=== PATIENT | female | born 1990 | race Caucasian/White ===

== ENCOUNTER 2017-01-08 11:14 | Emergency (ER) | payer BC ==
[2017-01-08 11:31] VITALS: BP 129/83; PULSE 60; RESP 16; TEMP 97.5; O2SAT 97
--- NOTE | 2017-01-08 12:45 | EDPHY ---
H & P Stated Complaint: head inj roller roselyn 3 weeks ago/friend impacted head to her jaw yesterday Time Seen by Provider: 01/08/17 12:22 HPI/ROS: 1240pm-I went to evaluate the patient and patient had left before being seen by provider. - Personal History LMP (Females 10-55): 22-28 Days Ago Current Tetanus/Diphtheria Vaccine: Yes - Medical/Surgical History Hx Asthma: No Hx Chronic Respiratory Disease: No Hx Diabetes: No Hx Cardiac Disease: No Hx Renal Disease: No Hx Cirrhosis: No Hx Alcoholism: No Hx HIV/AIDS: No Hx Splenectomy or Spleen Trauma: No Other PMH: BIPOLAR, OCD, ADHD, PANIC ATTACKS, eating disorder, possible hx. of concussion - Social History Smoking Status: Never smoked Constitutional: Initial Vital Signs Temperature (C) 36.4 C 01/08/17 11:27 Heart Rate 60 01/08/17 11:27 Respiratory Rate 16 01/08/17 11:27 Blood Pressure 129/83 H 01/08/17 11:27 O2 Sat (%) 97 01/08/17 11:27 O2 Delivery Mode Room Air Allergies/Adverse Reactions: gluten Allergy (Verified 01/08/17 11:27) Home Medications: Medication Instructions Recorded carBAMazepine ER [Tegretol Xr] 100 mg PO BID@ #60 tab 09/14/16 Adderall 10 MG (*) 01/08/17 Departure - Departure Disposition: Left Without Being Seen Referrals: Rosey Goodwin MD [Primary Care Provider] - As per Instructions
== END 2017-01-08 12:30 | disposition left against medical advice (07) ==
LOC: EEVIPCON 11:14
DX: Z53.21 Procedure and treatment not carried out due to patient leaving prior to being seen by health care provider (principal)

== ENCOUNTER → 2017-02-16 | Outpatient (CLI) | payer BC ==
[~2017-02-16] MED LIST: IOPAMIDOL (ISOVUE 370) 100 ML BTL IV ONE
== END ==
LOC: FIMAGING 15:17
PROVIDERS: ATTEND Psychiatry & Neurology Neurology
DX: Z03.89 Encounter for observation for other suspected diseases and conditions ruled out (principal); R51 Headache
CPT/HCPCS: Q9967

== ENCOUNTER 2017-02-20 15:29 | Emergency (ER) | payer BC ==
[2017-02-20 15:45] VITALS: BP 118/77; PULSE 66; RESP 18; TEMP 97.5; O2SAT 100
--- NOTE | 2017-02-20 17:33 | EDPHY ---
H & P Time Seen by Provider: 02/20/17 16:23 HPI/ROS: CHIEF COMPLAINT: Head injury HISTORY OF PRESENT ILLNESS: Patient is a 26-year-old female who presents to the emergency department with headache. Patient states that she has had numerous concussions. She has been followed by a neurologist, Dr. Ortiz. She has had numerous imaging studies including a recent noncontrast head CT, CT angio of the head, CT angio of the neck. She had sudden onset of dizzy in blurred vision. She then stated she had fuzziness behind her eyes "like when you get a concussion." She was concerned that she was having micro concussions. She denies any nausea vomiting. No focal neurologic deficit. No headache or symptoms at this time. REVIEW OF SYSTEMS: My complete review of systems is negative except as mentioned in the HPI. Past Medical/Surgical History: Numerous concussions, bipolar Smoking Status: Never smoked Physical Exam: Vitals noted GENERAL: Well-appearing, in no acute distress, alert. HEENT: Eyes normal to inspection, normal pharynx, no signs of dehydration. NECK: No thyromegaly, no lymphadenopathy, supple. RESPIRATORY: Clear to auscultation bilaterally, no rales, rhonchi or wheezing. CVS: Regular rate and rhythm, no rubs, murmurs, or gallops. ABDOMEN: Soft, nontender, nondistended, no organomegaly. BACK: Normal to inspection, no CVA tenderness. SKIN: Normal color, no rash, warm, dry. No pallor. EXTREMITIES: No pedal edema, no calf tenderness, no Homans sign or cords, no joint swelling. NEURO/PSYCH: Higher functions: Alert and Oriented x3. Normal speech and cognition. Normal mood and affect. Cranial nerves: Normal as tested. Cerebellar: Normal as tested. Good finger to nose, good [id number], normal gait. Peripheral exam: Normal motor exam. Normal sensation. Normal reflexes. Constitutional: Initial Vital Signs Temperature (C) 36.4 C 02/20/17 15:43 Heart Rate 66 02/20/17 15:43 Respiratory Rate 18 02/20/17 15:43 Blood Pressure 118/77 02/20/17 15:43 O2 Sat (%) 100 02/20/17 15:43 O2 Delivery Mode Room Air Allergies/Adverse Reactions: gluten Allergy (Verified 01/08/17 11:27) Home Medications: Medication Instructions Recorded carBAMazepine ER [Tegretol Xr] 100 mg PO BID@ #60 tab 09/14/16 Adderall 10 MG (*) 01/08/17 Medical Decision Making ED Course/Re-evaluation: I discussed the case with the patient's neurologist Dr. Ortiz. I reviewed the patient's imaging studies. They were negative. I discussed the findings with the patient. At this time I I do not feel she has a neuro surgical emergency. I do not feel she needs MRI imaging in the emergency department. I explained to the patient. I answered all her questions. She is given warnings prior to leaving. She will return with worsening symptoms. Differential Diagnosis: My differential includes but is not limited to concussion, post concussive syndrome, dissection, aneurysm, mass, malignancy, dissection subarachnoid hemorrhage, subdural hematoma, epidural hematoma, CVA Departure - Departure Disposition: Home, Routine, Self-Care Clinical Impression: Head injury Qualifiers: Encounter type: initial encounter Qualified Code(s): S09.90XA - Unspecified injury of head, initial encounter Condition: Good Instructions: Concussion (ED) Referrals: Rosey Goodwin MD [Primary Care Provider] - As per Instructions Amarilys Ortiz DO [Non Staff and Non MD] - As per Instructions
== END 2017-02-20 17:30 | disposition home or self-care (01) ==
DX: S09.90XA Unspecified injury of head, initial encounter (principal); X58.XXXA Exposure to other specified factors, initial encounter

== ENCOUNTER → 2017-03-02 | Outpatient (CLI) | payer BC | LOC: FIMAGING 19:12 | PROVIDERS: ATTEND Psychiatry & Neurology Neurology | DX: M50.322 Other cervical disc degeneration at C5-C6 level (principal); M50.323 Other cervical disc degeneration at C6-C7 level; R51 Headache ==

== ENCOUNTER → 2017-04-05 | Outpatient (CLI) | payer BC | LOC: FIMAGING 14:29 | PROVIDERS: ATTEND Psychiatry & Neurology Neurology | DX: M53.82 Other specified dorsopathies, cervical region (principal) ==

== ENCOUNTER 2017-09-16 20:42 | Emergency (ER) | payer BC ==
[2017-09-16] MEDS ORDERED: LORazepam 1 MG TAB PO ONE (20:56)
--- NOTE | 2017-09-16 20:59 | EDPHY ---
H & P Time Seen by Provider: 09/16/17 20:50 HPI/ROS: CHIEF COMPLAINT: Acute anxiety HISTORY OF PRESENT ILLNESS: 26-year-old female took a Lyft to the ER. Mental health history significant for possible bipolar disorder possible borderline personality disorder, states that her psychiatrist increased her Lamictal 2 days ago and she has been experiencing increasing anxiety ever sex. Combined with being by herself today, drinking large amounts of caffeine, she is complaining high levels of anxiety. No suicidal or homicidal ideation. No hallucination. PRIMARY CARE PROVIDER: REVIEW OF SYSTEMS: A ten point review of systems was performed and is negative with the exception of the items mentioned in the HPI PAST MEDICAL & SURGICAL HISTORY: Possible bipolar disorder, possible borderline personality disorder SOCIAL HISTORY: student nonsmoker PHYSICAL EXAM (Prior to examination, patient consented to physical exam, hands were washed and my usual and customary physical exam procedures followed) 1) GENERAL: Well-developed, well-nourished, alert and oriented. Tearful, hyperventilating, appears anxious 2) HEAD: Normocephalic, atraumatic 3) HEENT: Pupils equal, round, reactive to light bilaterally. Sclera anicteric. 4) NECK: Full range of motion, no meningeal signs. 5) LUNGS: Clear auscultation bilaterally, no wheezes, no rhonchi, no retractions. 6) HEART: Regular rate and rhythm, no murmur, no heave, no gallop. 7) ABDOMEN: No guarding, no rebound, no focal tenderness,, 8) MUSCULOSKELETAL: No peripheral edema or discoloration. 9) BACK: no visual or palpable abnormality. 10) SKIN: No rash, no petechiae. 11) Psychiatric: Patient is oriented X 3, there is no agitation. DIFFERENTIAL DIAGNOSIS: in no particular order including but limited to suicidal ideation, depression, acute anxiety Smoking Status: Never smoked Constitutional: Initial Vital Signs Temperature (C) 36.7 C 09/16/17 20:45 Heart Rate 71 09/16/17 20:45 Respiratory Rate 22 H 09/16/17 20:45 Blood Pressure 119/78 09/16/17 20:45 O2 Sat (%) 98 09/16/17 20:45 O2 Delivery Mode Room Air Allergies/Adverse Reactions: No Known Allergies Allergy (Unverified 09/16/17 20:45) Home Medications: Medication Instructions Recorded Lamictal 09/16/17 MDM/Departure - MDM Medications Given: Discontinued Medications Lorazepam (Ativan) 1 mg PO EDNOW ONE Stop: 09/16/17 20:57 Last Admin: 09/16/17 21:02 Dose: 1 mg ED Course/Re-evaluation: 9:41 p.m.: Re-evaluation, sleeping 10:02 p.m.: Patient re-evaluated, sleeping easily woken. Denies suicidal or homicidal ideation. Recommend cessation of stimulant use. Follow up with her psychiatrist on Monday (today is Monday) - Depart Disposition: Home, Routine, Self-Care Clinical Impression: Anxiety Condition: Good Instructions: Anxiety (ED), Lorazepam (By mouth) Additional Instructions: Decrease your stimulant use. Return to the ER if you develop thoughts of hurting herself or others or any other symptoms that concern you. Referrals: See, your psychiatrist on Monday [Other] - As per Instructions
[2017-09-16] MEDS ORDERED: LORAZEPAM 1 MG PREPACK#4 BTL TAKEHOME ONE (22:07)
[2017-09-16 22:34] VITALS: BP 108/72; PULSE 75; RESP 16; TEMP 97.9; O2SAT 93
== END 2017-09-16 22:33 | disposition home or self-care (01) ==
LOC: EEVIPCON 20:42
DX: F41.9 Anxiety disorder, unspecified (principal)

== ENCOUNTER 2018-01-22 00:12 | Emergency (ER) | payer BC ==
[2018-01-22] MEDS ORDERED: NS 1,000 ML IV ONE (00:19)
[2018-01-22] MEDS ORDERED: LORazepam 2 MG/ML INJ IVP ONE (00:20)
--- NOTE | 2018-01-22 00:23 | EDPHY ---
H & P Time Seen by Provider: 01/22/18 00:20 HPI/ROS: HPI CHIEF COMPLAINT: Anxiety/panic attack HISTORY OF PRESENT ILLNESS: Patient is a 27-year-old female, she has a history of anxiety and panic attacks as well as agoraphobia, she presents emergency room by EMS after she states she is having anxiety/panic attack. She reports numbness tingling on her face and bilateral hands. Increase breathing rate. She states she did take 1 mg p. O. Ativan prior to arrival but it did not help. Decided come the emergency room as she has a history of severe anxiety/panic attacks. Upon arrival she complains of numbness and tingling all over her body. She states she feels very anxious. Past Medical History: Anxiety, panic attacks, agoraphobia, bipolar disorder, personality disorder Past Surgical History: Denies recent surgery Social History: Denies daily use of drugs alcohol tobacco. Family History: Noncontributory ROS REVIEW OF SYSTEMS: A comprehensive 10 point review of systems is otherwise negative aside from elements mentioned in the history of present illness. Exam Constitutional appears well nontoxic no acute distress, anxious, triage nursing summary reviewed, vital signs reviewed, awake/alert. Eyes normal conjunctivae and sclera, EOMI, PERRLA. HENT normal inspection, atraumatic, moist mucus membranes, no epistaxis, neck supple/ no meningismus, no raccoon eyes. Respiratory clear to auscultation bilaterally, normal breath sounds, no respiratory distress, no wheezing. Cardiovascular rate normal, regular rhythm, no murmur, no edema, distal pulses normal. Gastrointestinal soft, non-tender, no rebound, no guarding, normal bowel sounds, no distension, no pulsatile mass. Genitourinary no CVA tenderness. Musculoskeletal no midline vertebral tenderness, full range of motion, no calf swelling, no tenderness of extremities, no meningismus, good pulses, neurovascularly intact. Skin pink, warm, & dry, no rash, skin atraumatic. Neurologic awake, alert and oriented x 3, AAOx3, moves all 4 extremities equally, motor intact, sensory intact, CN II-XII intact, normal cerebellar, normal vision, normal speech. Psychiatric anxious Heme/Lymph/Immune no lymphadenopathy. Differential Diagnosis: Includes but is not limited to in a particular order acute anxiety, panic attack electrolyte disturbance, thyroid dysfunction, Medical Decision Making: Plan for this patient IV establishment IV Ativan 1 mg , gentle IV fluids, check basic electrolytes, and re-evaluate. Re-evaluation: 0200: Re-examination at this time this patient is resting comfortably infection he is sleeping. She states she feels much better. She denies feeling anxious anymore. She would like to go home and she is requesting discharge. Vital signs are stable and she has no complaints. She states she feels better after IV Ativan 1 mg. Return precautions discussed. She understands return emergency room if develops worsening symptoms includes shortness of breath, chest pain, further anxiety. Source: Patient, EMS - Medical/Surgical History Hx Asthma: No Hx Chronic Respiratory Disease: No Hx Diabetes: No Hx Cardiac Disease: No Hx Renal Disease: No Hx Cirrhosis: No Hx Alcoholism: No Hx HIV/AIDS: No Hx Splenectomy or Spleen Trauma: No Other PMH: ADHD, PANIC ATTACKS, hx eating disorder, possible hx. of concussion - Social History Smoking Status: Never smoked Constitutional: Initial Vital Signs Temperature (C) 36.7 C 01/22/18 00:15 Heart Rate 61 01/22/18 00:15 Respiratory Rate 18 01/22/18 00:15 Blood Pressure 117/78 01/22/18 00:15 O2 Sat (%) 98 01/22/18 00:15 O2 Delivery Mode Room Air Allergies/Adverse Reactions: No Known Allergies Allergy (Unverified 01/22/18 00:25) Home Medications: Medication Instructions Recorded 5-Hydroxytryptophan (5-Htp) [5-Htp] 50 mg PO 01/22/18 L Theonine 01/22/18 [place]-3/Dha/Epa/Fish Oil [Fish Oil 1 each PO 01/22/18 1,000 mg Softgel] Medical Decision Making - Data Points Laboratory Results: Laboratory Results 01/22/18 00:38 01/22/18 00:38 01/22/18 01/22/18 01/22/18 00:38 00:38 00:38 WBC 6.88 10^3/uL 10^3/uL (3.80-9.50) RBC 4.39 10^6/uL 10^6/uL (4.18-5.33) Hgb 13.1 g/dL g/dL (12.6-16.3) Hct 37.7 % L % (38.0-47.0) MCV 85.9 fL fL (81.5-99.8) MCH 29.8 pg pg (27.9-34.1) MCHC 34.7 g/dL g/dL (32.4-36.7) RDW 12.6 % % (11.5-15.2) Plt Count 199 10^3/uL 10^3/uL (150-400) MPV 9.7 fL fL (8.7-11.7) Neut % (Auto) 54.2 % % (39.3-74.2) Lymph % (Auto) 35.6 % % (15.0-45.0) [place] % (Auto) 7.7 % % (4.5-13.0) Eos % (Auto) 1.5 % % (0.6-7.6) Baso % (Auto) 0.7 % % (0.3-1.7) Nucleat RBC Rel Count 0.0 % % (0.0-0.2) Absolute Neuts (auto) 3.73 10^3/uL 10^3/uL (1.70-6.50) Absolute Lymphs (auto) 2.45 10^3/uL 10^3/uL (1.00-3.00) Absolute Monos (auto) 0.53 10^3/uL 10^3/uL (0.30-0.80) Absolute Eos (auto) 0.10 10^3/uL 10^3/uL (0.03-0.40) Absolute Basos (auto) 0.05 10^3/uL 10^3/uL (0.02-0.10) Absolute Nucleated RBC 0.00 10^3/uL 10^3/uL (0-0.01) Immature Gran % 0.3 % % (0.0-1.1) Immature Gran # 0.02 10^3/uL 10^3/uL (0.00-0.10) Sodium 142 mEq/L mEq/L (135-145) Potassium 3.6 mEq/L mEq/L (3.5-5.2) Chloride 108 mEq/L mEq/L (97-110) Carbon Dioxide 22 mEq/l mEq/l (22-31) Anion Gap 12 mEq/L mEq/L (8-16) BUN 13 mg/dL mg/dL (7-23) Creatinine 0.8 mg/dL mg/dL (0.6-1.0) Estimated GFR > 60 Glucose 92 mg/dL mg/dL (70-100) Calcium 9.5 mg/dL mg/dL (8.5-10.4) Magnesium 1.7 mg/dL mg/dL (1.6-2.3) TSH 2.700 uIU/mL uIU/mL (0.465-4.680) Beta HCG, Qual NEGATIVE Medications Given: Discontinued Medications Sodium Chloride (Ns) 1,000 mls @ 0 mls/hr IV EDNOW ONE; Wide Open PRN Reason: Protocol Stop: 01/22/18 00:20 Last Admin: 01/22/18 00:33 Dose: 1,000 mls Lorazepam (Ativan Injection) 1 mg IVP EDNOW ONE Stop: 01/22/18 00:21 Last Admin: 01/22/18 00:33 Dose: 1 mg Departure - Departure Disposition: Home, Routine, Self-Care Clinical Impression: Anxiety Condition: Good Instructions: Anxiety (ED) Additional Instructions: 1. Return emergency room if there is any worsening symptoms questions or concerns. Referrals: NONE *PRIMARY CARE P,. [Primary Care Provider] - As per Instructions
[2018-01-22 00:52] LABS: PLATELET COUNT 199 10^3/uL (150-400)
[2018-01-22] MEDS ORDERED: ONDANSETRON DISINTEGRATING 4 MG TAB PO ONE (02:11)
[2018-01-22] MEDS ORDERED: ACETAMINOPHEN 500 MG TAB PO ONE (02:11)
[2018-01-22] MEDS ORDERED: ONDANSETRON DISINTEGRATING 4 MG TAB ONE (02:12)
[2018-01-22] MEDS ORDERED: ACETAMINOPHEN 500 MG TAB ONE (02:12)
[2018-01-22 02:21] VITALS: BP 110/79; PULSE 66; RESP 16; TEMP 97.5; O2SAT 99
== END 2018-01-22 02:21 | disposition home or self-care (01) ==
LOC: EDUNIT#
DX: F41.9 Anxiety disorder, unspecified (principal)
CPT/HCPCS: 96374; J2060

== ENCOUNTER 2018-03-25 22:43 | Emergency (ER) | payer BC ==
--- NOTE | 2018-03-25 23:02 | EDPHY ---
H & P Stated Complaint: SI Source: Patient - Personal History LMP (Females 10-55): 1-7 Days Ago Current Tetanus/Diphtheria Vaccine: Yes Current Tetanus Diphtheria and Acellular Pertussis (TDAP): Yes - Medical/Surgical History Hx Asthma: No Hx Chronic Respiratory Disease: No Hx Diabetes: No Hx Cardiac Disease: No Hx Renal Disease: No Hx Cirrhosis: No Hx Alcoholism: No Hx HIV/AIDS: No Hx Splenectomy or Spleen Trauma: No Other PMH: ADHD, PANIC ATTACKS, hx eating disorder, possible hx. of concussion - Social History Smoking Status: Never smoked Time Seen by Provider: 03/25/18 23:02 HPI/ROS: HPI CHIEF COMPLAINT: Suicidal ideation HISTORY OF PRESENT ILLNESS: This patient 27-year-old, whom goes by "Richard", history of anxiety and panic attacks as well as agoraphobia, as well as possible history of bipolar disorder, has had inpatient psychiatric hospitalizations, presents emergency room by private vehicle for suicidal ideation and feeling out of control. Thoughts of wanting to hurt herself. Denies any ingestion. She has been taking Ativan. Past Medical History: Bipolar disorder, anxiety, panic disorder, agoraphobia Past Surgical History: No recent surgery Social History: He denies drugs alcohol tobacco. Family History: Noncontributory ROS REVIEW OF SYSTEMS: A comprehensive 10 point review of systems is otherwise negative aside from elements mentioned in the history of present illness. Exam Constitutional triage nursing summary reviewed, vital signs reviewed, awake/ alert. Eyes normal conjunctivae and sclera, EOMI, PERRLA. HENT normal inspection, atraumatic, moist mucus membranes, no epistaxis, neck supple/ no meningismus, no raccoon eyes. Respiratory clear to auscultation bilaterally, normal breath sounds, no respiratory distress, no wheezing. Cardiovascular rate normal, regular rhythm, no murmur, no edema, distal pulses normal. Gastrointestinal soft, non-tender, no rebound, no guarding, normal bowel sounds, no distension, no pulsatile mass. Genitourinary no CVA tenderness. Musculoskeletal no midline vertebral tenderness, full range of motion, no calf swelling, no tenderness of extremities, no meningismus, good pulses, neurovascularly intact. Skin pink, warm, & dry, no rash, skin atraumatic. Neurologic awake, alert and oriented x 3, AAOx3, moves all 4 extremities equally, motor intact, sensory intact, CN II-XII intact, normal cerebellar, normal vision, normal speech. Psychiatric anxious, depressed, suicidal. Heme/Lymph/Immune no lymphadenopathy. Differential Diagnosis: Includes but is not limited to in a particular order mood disorder, bipolar disorder, depression, suicidal ideation Medical Decision Making: Plan for this patient blood draw for medical clearance. I will place patient on M1 hold. Patient will need mental health evaluation Re-evaluation: 0515AM: Patient resting comfortably. Medically clear. Needs mental health evaluation. Placed on M1 hold by myself. 0637AM: Patient signed over to Dr. Peter 7am Shift-change. Patient is getting mental health evaluation at this time. 0646AM: Patient seen and evaluated by Tony with [facility], recommends inpatient psychiatric hospitalization. Will commence for bed search. (Star Harris) Constitutional: Initial Vital Signs Temperature (C) 36.4 C 03/25/18 22:52 Heart Rate 59 L 03/25/18 22:52 Respiratory Rate 16 03/25/18 22:52 Blood Pressure 121/68 H 03/25/18 22:52 O2 Sat (%) 97 03/25/18 22:52 O2 Delivery Mode Room Air Allergies/Adverse Reactions: No Known Allergies Allergy (Unverified 01/22/18 00:25) Home Medications: Medication Instructions Recorded Ativan 03/25/18 Gabapentin 03/25/18 Medical Decision Making Other Provider: Care assumed at 6:35 a.m. With plan for psychiatric evaluation, in progress. 838: Accepted at [facility] by Dr. Peter Johns, stable for transfer. Reason for transfer is inpatient psychiatric hospital but not available at [facility]. (Demond Peter) - Data Points Laboratory Results: Laboratory Results 03/25/18 23:24 03/25/18 23:24 03/25/18 03/25/18 03/25/18 23:24 23:24 23:24 WBC 4.46 10^3/uL 10^3/uL (3.80-9.50) RBC 5.02 10^6/uL 10^6/uL (4.18-5.33) Hgb 14.9 g/dL g/dL (12.6-16.3) Hct 44.1 % % (38.0-47.0) MCV 87.8 fL fL (81.5-99.8) MCH 29.7 pg pg (27.9-34.1) MCHC 33.8 g/dL g/dL (32.4-36.7) RDW 12.8 % % (11.5-15.2) Plt Count 200 10^3/uL 10^3/uL (150-400) MPV 9.6 fL fL (8.7-11.7) Neut % (Auto) 47.0 % % (39.3-74.2) Lymph % (Auto) 43.3 % % (15.0-45.0) [place] % (Auto) 7.2 % % (4.5-13.0) Eos % (Auto) 1.6 % % (0.6-7.6) Baso % (Auto) 0.9 % % (0.3-1.7) Nucleat RBC Rel Count 0.0 % % (0.0-0.2) Absolute Neuts (auto) 2.10 10^3/uL 10^3/uL (1.70-6.50) Absolute Lymphs (auto) 1.93 10^3/uL 10^3/uL (1.00-3.00) Absolute Monos (auto) 0.32 10^3/uL 10^3/uL (0.30-0.80) Absolute Eos (auto) 0.07 10^3/uL 10^3/uL (0.03-0.40) Absolute Basos (auto) 0.04 10^3/uL 10^3/uL (0.02-0.10) Absolute Nucleated RBC 0.00 10^3/uL 10^3/uL (0-0.01) Immature Gran % 0.0 % % (0.0-1.1) Immature Gran # 0.00 10^3/uL 10^3/uL (0.00-0.10) Sodium 143 mEq/L mEq/L (135-145) Potassium 4.1 mEq/L mEq/L (3.3-5.0) Chloride 102 mEq/L mEq/L (97-110) Carbon Dioxide 28 mEq/l mEq/l (22-31) Anion Gap 13 mEq/L mEq/L (8-16) BUN 18 mg/dL mg/dL (7-23) Creatinine 0.8 mg/dL mg/dL (0.6-1.0) Estimated GFR > 60 Glucose 76 mg/dL mg/dL (70-100) Calcium 9.1 mg/dL mg/dL (8.5-10.4) Beta HCG, Qual NEGATIVE Urine Opiates Screen Urine Barbiturates Ur Phencyclidine Scrn Ur Amphetamine Screen U Benzodiazepines Scrn Urine Cocaine Screen U Marijuana (THC) Screen Ethyl Alcohol < 10 mg/dL mg/dL (0-10) 03/25/18 23:15 WBC RBC Hgb Hct MCV MCH MCHC RDW Plt Count MPV Neut % (Auto) Lymph % (Auto) [place] % (Auto) Eos % (Auto) Baso % (Auto) Nucleat RBC Rel Count Absolute Neuts (auto) Absolute Lymphs (auto) Absolute Monos (auto) Absolute Eos (auto) Absolute Basos (auto) Absolute Nucleated RBC Immature Gran % Immature Gran # Sodium Potassium Chloride Carbon Dioxide Anion Gap BUN Creatinine Estimated GFR Glucose Calcium Beta HCG, Qual Urine Opiates Screen NEGATIVE (NEGATIVE) Urine Barbiturates NEGATIVE (NEGATIVE) Ur Phencyclidine Scrn NEGATIVE (NEGATIVE) Ur Amphetamine Screen NEGATIVE (NEGATIVE) U Benzodiazepines Scrn NON-NEGATIVE H (NEGATIVE) Urine Cocaine Screen NEGATIVE (NEGATIVE) U Marijuana (THC) Screen NEGATIVE (NEGATIVE) Ethyl Alcohol Departure - Departure Disposition: Other Psych, Not Magy Clinical Impression: Suicidal ideation Bipolar disorder Qualifiers: Active/Remission status: currently active Current bipolar episode type: depressed Current episode severity: moderate Qualified Code(s): F31.32 - Bipolar disorder, current episode depressed, moderate Condition: Good Instructions: Bipolar Disorder (ED) Referrals: Rosey Goodwin MD [Primary Care Provider] - As per Instructions
[2018-03-25 23:40] LABS: PLATELET COUNT 200 10^3/uL (150-400)
[2018-03-26 11:23] VITALS: BP 115/68
== END 2018-03-26 11:23 ==
LOC: EEVIPCON 22:43
PROC: GZ11ZZZ Psychological Tests, Personality and Behavioral (ICD-10-PCS; principal; 2018-03-25)
DX: R45.851 Suicidal ideations (principal); F31.32 Bipolar disorder, current episode depressed, moderate
CPT/HCPCS: 80305; G0480

== ENCOUNTER 2018-05-15 22:07 | Emergency (ER) | payer BC ==
--- NOTE | 2018-05-15 22:16 | EDPHY ---
H & P Source: Patient - Medical/Surgical History Hx Asthma: No Hx Chronic Respiratory Disease: No Hx Diabetes: No Hx Cardiac Disease: No Hx Renal Disease: No Hx Cirrhosis: No Hx Alcoholism: No Hx HIV/AIDS: No Hx Splenectomy or Spleen Trauma: No Other PMH: ADHD, PANIC ATTACKS, hx eating disorder, possible hx. of concussion - Social History Smoking Status: Never smoked Time Seen by Provider: 05/15/18 22:16 HPI/ROS: HPI CHIEF COMPLAINT: Anxiety, suicidal ideation HISTORY OF PRESENT ILLNESS: 27-year-old female, she has a history of bipolar disorder, PTSD and OCD, she presents emergency room by private vehicle feeling very anxious, "feels like her skin is going to come off her body" and feels suicidal. She states that feels like her "skin is going to come off of her body and she is going to jump off a bridge". She denies any ingestion. Denies visual or auditory hallucination, denies racing thoughts, denies HI. Past Medical History: Bipolar disorder, OCD, PTSD Past Surgical History: No recent surgery Social History: Denies current use of drugs or alcohol. Family History: Noncontributory ROS REVIEW OF SYSTEMS: A comprehensive 10 point review of systems is otherwise negative aside from elements mentioned in the history of present illness. Exam Constitutional triage nursing summary reviewed, vital signs reviewed, awake/ alert. Eyes normal conjunctivae and sclera, EOMI, PERRLA. HENT normal inspection, atraumatic, moist mucus membranes, no epistaxis, neck supple/ no meningismus, no raccoon eyes. Respiratory clear to auscultation bilaterally, normal breath sounds, no respiratory distress, no wheezing. Cardiovascular rate normal, regular rhythm, no murmur, no edema, distal pulses normal. Gastrointestinal soft, non-tender, no rebound, no guarding, normal bowel sounds, no distension, no pulsatile mass. Genitourinary no CVA tenderness. Musculoskeletal no midline vertebral tenderness, full range of motion, no calf swelling, no tenderness of extremities, no meningismus, good pulses, neurovascularly intact. Skin pink, warm, & dry, no rash, skin atraumatic. Neurologic awake, alert and oriented x 3, AAOx3, moves all 4 extremities equally, motor intact, sensory intact, CN II-XII intact, normal cerebellar, normal vision, normal speech. Psychiatric suicidal, anxious. Heme/Lymph/Immune no lymphadenopathy. Differential Diagnosis: Includes but is not limited to in a particular order underlying mood disorder, bipolar with stacie, bipolar depression, acute anxiety , PTSD, thoughts of suicide, anxiety Medical Decision Making: Plan for this patient should be placed on M1 hold due to suicidal ideation. She will need labs for medical clearance. She will then need mental health evaluation. Re-evaluation: 2230: I placed her on M1 hold upon arrival due to suicidal ideation and a plan to jump off a bridge. 0630AM: No acute events overnight patient has been resting and sleeping. Patient is pending mental health evaluation. 0700AM: signed over to Dr. Cuenca at 7 am shift-change. (tSar Harris) Constitutional: Initial Vital Signs Heart Rate 62 05/15/18: Respiratory Rate 16 05/15/18: Blood Pressure 127/71 H 05/15/18:18 O2 Sat (%) 96 05/15/18:18 O2 Delivery Mode Room Air Allergies/Adverse Reactions: No Known Allergies Allergy (Unverified 05/15/18 22:17) Home Medications: Medication Instructions Recorded Latuda 05/15/18 LORazepam [Ativan] 1 mg PO BID PRN #10 tab 05/16/18 Medical Decision Making Other Provider: I assumed care of the patient at 0700. The patient was evaluated by Mental Health. She is much calmer after receiving Ativan. She now contracts for safety and denies any suicidal ideation. She would like to be discharged so she can attend a class at the [facility]. The patient has been cooperative. She was evaluated by [facility]. Dr. Carlos Ramirez felt the patient did not meet criteria for an M1 psychiatric hold and vacated it. The patient will be given a short course of Ativan. She is discharged home with customary aftercare instructions. (Andrea Cuenca) - Data Points Laboratory Results: Laboratory Results 05/15/18 22:40 05/15/18 22:40 05/15/18 05/15/18 05/15/18 22:40 22:40 22:40 WBC 4.94 10^3/uL 10^3/uL (3.80-9.50) RBC 4.57 10^6/uL 10^6/uL (4.18-5.33) Hgb 13.8 g/dL g/dL (12.6-16.3) Hct 38.9 % % (38.0-47.0) MCV 85.1 fL fL (81.5-99.8) MCH 30.2 pg pg (27.9-34.1) MCHC 35.5 g/dL g/dL (32.4-36.7) RDW 12.2 % % (11.5-15.2) Plt Count 175 10^3/uL 10^3/uL (150-400) MPV 9.5 fL fL (8.7-11.7) Neut % (Auto) 39.5 % % (39.3-74.2) Lymph % (Auto) 49.6 % H % (15.0-45.0) [place] % (Auto) 8.1 % % (4.5-13.0) Eos % (Auto) 1.6 % % (0.6-7.6) Baso % (Auto) 1.0 % % (0.3-1.7) Nucleat RBC Rel Count 0.0 % % (0.0-0.2) Absolute Neuts (auto) 1.95 10^3/uL 10^3/uL (1.70-6.50) Absolute Lymphs (auto) 2.45 10^3/uL 10^3/uL (1.00-3.00) Absolute Monos (auto) 0.40 10^3/uL 10^3/uL (0.30-0.80) Absolute Eos (auto) 0.08 10^3/uL 10^3/uL (0.03-0.40) Absolute Basos (auto) 0.05 10^3/uL 10^3/uL (0.02-0.10) Absolute Nucleated RBC 0.00 10^3/uL 10^3/uL (0-0.01) Immature Gran % 0.2 % % (0.0-1.1) Immature Gran # 0.01 10^3/uL 10^3/uL (0.00-0.10) Sodium 133 mEq/L L mEq/L (135-145) Potassium 3.8 mEq/L mEq/L (3.3-5.0) Chloride 106 mEq/L mEq/L (97-110) Carbon Dioxide 21 mEq/l L mEq/l (22-31) Anion Gap 6 mEq/L L mEq/L (8-16) BUN 17 mg/dL mg/dL (7-23) Creatinine 0.8 mg/dL mg/dL (0.6-1.0) Estimated GFR > 60 Glucose 98 mg/dL mg/dL (70-100) Calcium 9.1 mg/dL mg/dL (8.5-10.4) Urine Opiates Screen NEGATIVE (NEGATIVE) Urine Barbiturates NEGATIVE (NEGATIVE) Ur Phencyclidine Scrn NEGATIVE (NEGATIVE) Ur Amphetamine Screen NEGATIVE (NEGATIVE) U Benzodiazepines Scrn NEGATIVE (NEGATIVE) Urine Cocaine Screen NEGATIVE (NEGATIVE) U Marijuana (THC) Screen NEGATIVE (NEGATIVE) Ethyl Alcohol < 10 mg/dL mg/dL (0-10) Medications Given: Discontinued Medications Lorazepam (Ativan) 1 mg PO ONCE ONE Stop: 05/15/18 22:34 Last Admin: 05/15/18 22:37 Dose: 1 mg Departure - Departure Disposition: Home, Routine, Self-Care Clinical Impression: Bipolar 1 disorder Condition: Fair Instructions: Bipolar Disorder (ED) Additional Instructions: 1. Please follow-up with the mental health resources provided in the ED today. 2. [facility] does operate a 29/05 psychiatric crisis unit located at [facility]. The telephone number for the 24 hour crisis center is [phone]. 3. Please return to the ED if you are feeling suicidal, having thoughts of harming yourself/others or should you feel unsafe or have worsening symptoms. 4. You have been given a short course of Ativan.
[2018-05-15] MEDS ORDERED: LORazepam 1 MG TAB PO ONE (22:33)
[2018-05-15 22:47] LABS: PLATELET COUNT 175 10^3/uL (150-400)
[2018-05-16 07:42] VITALS: BP 107/65
--- NOTE | 2018-05-16 08:45 | ASMTTLCEVL ---
TLC Evaluation - Basic Information Evaluation Start Date and 05/16/2018 07:30 AM Time Hospital Status Answers: M1 Hold 72-hr M1 Hold Start Date 05/15/2018 10:31 PM and Time Patient statement Notes: I genuinely dont want to . I was feeling an unbearable aliveness in my body and Akathisia. It scare the shit out of me so I came here. Currently, Id like to be able to make my class at 0830. I [facility] an [facility] and an appointment with my new psychiatrist, Mk Trujillo MD at [facility] tomorrow at 3:30 pm. Narrative Notes: Pt is a 27 year old, single, unemployed, female, with history of Bipolar Disorder NOS, Panic Disorder with Agoraphobia, Benzodiazepine Use Disorder, history of Anorexia Nervosa Binge-eating/Purging Type (in remission), and Borderline Personality Disorder, who [facility] feeling very anxious, feels like her skin is going to come off her body and she is going to jump off a bridge, and feels suicidal. ED provider placed Pt on M1 hold which noted: Patient here with Bipolar D/O with suicidal ideation, anxiety, plan to jump off bridge. Previously, pt had been under the care of Dr. Pike at the [facility]. Presently, she has phone and internet contact with a [place] psychiatrist named Eun Olivas MD at the [facility]. She reported that her psychiatrist had tried her on Citalopram and Celexa in late February, but pt stopped after 4 days because of negative side effects. She was then tried on Tegretol. Pt was started on Latuda 20 mg po daily about 2 weeks ago. Pt was administered Ativan 1 mg po on 05/15/18 at 2237. Pt reported she participates in the [facility] recovery center his past semester at and sees therapist, Flakita Hollis weekly for the past 10 months. She also had daily contact with a therapist named Daniel (ulysses) Pedro while at the [facility]. Diagnosis History Notes: Bipolar Disorder NOS, Panic Disorder with Agoraphobia, Benzodiazepine Use Disorder, history of Anorexia Nervosa Binge-eating/Purging Type (in remission), and Borderline Personality Disorder. Prior suicide attempts Notes: In August 2016, she attempted to overdose on 30 pills of Tegretol. At that time, pt stated she wanted to . When asked about that report currently, pt stated I dont think that I did that. Prior hospitalizations Notes: Pt was hospitalized at [address] [place] [address] from 05/04/16-05/08/16 and 09/12/16 to 09/15/16. Pt was evaluated at [facility] ED on 03/23/18 and transferred to [facility]. Per previous records, pt was also hospitalized at [facility] in [place]. Treatment Responses Notes: [facility] at [facility], attends A.A. regularly, sees her therapist, was started on Latuda 20 mg po daily about 2.5 weeks ago, and has appointment with new psychiatrist, Mk Trujillo MD at [facility] tomorrow at 3:30 pm. History of violence Notes: Pt denied any history of homicidal ideation. Therapist: Flakita Hollis Psychiatrist: Mk Trujillo MD - [facility] Medications (name, dosage, route, freq uency) Notes: Pt was started on Latuda 20 mg po daily about 2 weeks ago. Pt was administered Ativan 1 mg po on 05/15/18 at 2237. Allergies/Reaction Notes: NKDA. Sleep Notes: Pt reported her sleep was erratic. She stated that starting Latuda, her sleep has decreased. Appetite Notes: Pt stated she has history of binging and restricting in the past. Pt stated her current appetite is "OK." Medical/Surgical history Notes: Pt reported having sustained 3 concussions from playing roller [employer] with her last concussion being about 2.5 years ago which pt described as, "super mild. i like couldn't watch tv for 3 days. That was it." Substance use history (frequency, intensity, his tory, duration) Notes: Pt stated she had, "a brief stint of abusing etoh this past summer where she was drinking approximately 2-3 drinks of alcohol a night that lasted about 6 weeks. Pt stated she had her first drink at age 17 yo and had her last drink was in early March 2018. Pt's BAL was .0. Pt stated she did cocaine almost 2 years ago and that it was an "impulsive thing." Pt stated that was not the first time she had done cocaine but did not disclose how many times she had done cocaine. Pt reported she was dependent on benzodiazepines for approximately 6 months, although pt stated she was first prescribed benzodiazepines at the age of 14 and had been on them, periodically from 14 yo until 23 yo. Pt's utox results were negative for all tested substances. BAL was zero. Family composition Notes: Pt stated her parents and sister are in [place]. Per previous records, pt's sister has anxiety, chronic fatigue syndrome and narcolepsy. Need for family Answers: No participation in patient's care Family psychiatric/substance abuse history Notes: Per previous records, pt stated she does not know if there is any psychiatric illness in her family, however she believes her sister may have borderline personality disorder. Pt reported that there may be addiction in her family. Developmental history Notes: Pt reported having a good childhood. Pts parents are still . Pt stated, I think I may have had mild borderline personality disorder. Both of my parents loved me. Pt reported not doing well in school due to her mental health issues. Pt denied any childhood abuse/head trauma/LOC. Abuse concerns Answers: None Marital status/children Notes: Pt is single, no children. Pt identifies herself as being transgender and prefers to be called Richard. Living situation Notes: Pt stated [facility]. Sexual history/orientation Notes: Not active. Pt identifies herself as being transgender and prefers to be called Richard. Peer support/family strengths Notes: Pt reported having a lot of very good friendships. Pt stated she has been isolating a lot. Pt stated she normally has good relationships but she does not think it will stay that way for long. Pt reported being in a relationship with a woman that is somewhat healthy. Education level/history Notes: Pt recently completed her spring semester at , studying psychology. 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 She is not currently working. Per previous records, pt stated she recently lost 2 jobs because she did not show up to work. Notes: None. Legal Notes: Pt denied any legal problems. Zoroastrianism/Spiritual Notes: None that would interfere with treatment. Leisure Notes: Pt stated she enjoys playing [employer]. Collateral Notes: Per prior [facility] records. TLC Evaluation - Mental Status Exam Appearance: Answers: Appropriate Clean Well Groomed Neat Eye Contact: Answers: Good/Direct Mood: Answers: Sad Affect: Answers: Anxious Calm Cheerful Sad Behavior: Answers: Appropriate Cooperative Anxious Impulsive Manipulative Speech: Answers: Relevant Logical Clear Coherent Soft Thought Process: Answers: Organized Oriented Alert Intact Insight: Answers: Fair Judgement: Answers: Fair Manic Signs/Symptoms Answers: Impulsivity Mood Swings Depression Answers: Sad Mood Signs/Symptoms: Anxiety Signs/Symptoms Answers: Generalized Anxiety Obsessive/Compulsive Thoughts/Behavior Panic Attacks Hallucinations: Answers: None Current Stage of Change Answers: Maintenance Pt reported to be making Answers: No suicidal/self-injuring threats? Pt reported to have Answers: No aggression/assault ideation/behavior? Pt reported to be making Answers: No aggression/assault threats? Pt exhibits inability to Answers: No care for self/grave disability? Ideation/behavior is Answers: No chronic? Patient has a specific Answers: No plan? Pt has access to means to Answers: No execute the plan? Ideation involves Answers: No serious/lethal intent? Ideation has Answers: No delusional/hallucinatory content? History of Answers: No aggressive/assaultive ideation, behavior, or threats? History of serious Answers: No physical harm to self/others while in treatment setting? [facility] Evaluation - Suicide/Homicide Risk Suicide Risk Factors: Answers: Anxiety/Panic, Severe Bipolar Disorder Borderline Personality DO Cluster "B" D/O or Traits Eating Disorders Impulsivity Lack/Loss of Employment Single Homicide/violence risk Answers: Borderline Personality DO factors: Cluster "B" D/O or Traits Current Suicidal Answers: No Ideation? Current Suicide Ideation Last night, stated "feels like her skin is going to Frequency: come off her body and she is going to jump off a bridge Current Suicidal Ideation Answers: Yes in the Past 48 Hours? Current Suicidal Ideation Answers: No in the Past Month? Current Suicidal Answers: No Ideation, Worst Ever? Suicide Internal Answers: Absence of Psychosis Protective Factors: Deidre with Stress Suicide External Answers: Positive Therapeutic Protective Factors: Relationships Social Support Ranking of patient's Answers: Low suicidal risk: Ranking of patient's Answers: Low homicidal risk: TLC Evaluation - Wrap-up BDI Total Score: 0 BDI Question #2 Score: 0 BDI Question #9 Score: 0 BSS Total Score: 0 AXIS I Diagnosis (include DSM-V and ICD-10 codes), must also be entered in [employer], which is the source of truth. Notes: UNSPECIFIED BIPOLAR DISORDER AND RELATED DISORDER 296.80 (F31.9) R/O BIPOLAR II DISORDER, DEPRESSED), MILD/MODERATE/SEVERE 296.89 (F31.81) SEDATIVE, HYPNOTIC, OR ANXIOLYTIC-RELATED DISORDER, SEVERE 304.10 (F13.20) HISTORY ANOREXIA NERVOSA 307.1 (F50.01) HISTORY OF BULEMIA NERVOSA 307.59 (F50.8) BORDERLINE PERSONALITY DISORDER 301.83 (F60.3) In consultation with [facility] ED physician, Stewart Cuenca MD, and on-call psychiatrist, Carlos Ramirez MD, both concurred that Pt does not appear to meet 27-65 criteria requiring psychiatric hospitalization as Pt does not appear to be an imminent risk of harm to self/others/gravely disabled due to a mental illness condition. Dr. Ramirez provided telephone order read back vacating M1 hold at 0800 hrs. Evaluation End Date and 05/16/2018 08:43 AM Time (HH:BUBBA): Date Signed: 05/16/2018 08:44 AM Electronically Signed By:Tony Sin
--- NOTE | 2018-05-16 08:46 | ASMTTCLDSP ---
TLC Discharge Disposition Disposition: Answers: Discharge If Answers: Yes DISCHARGED: Patient/family given suicide hotline info & SAMHSA brochure? Disposition Notes: Notes: Pt stated commitment or ability to keep self safe, denied thoughts/intent of self harm or harm to others. Pt expressed a desire to f/u with her new psychiatrist, Mk Trujillo MD at [facility] tomorrow at 3:30 pm. Pt was given local hotline information and SAMHSA brochure After an Attempt and encouraged to follow up with appointment tomorrow with Dr. Trujillo at 3:30 pm. Discharge Concerns/Recommendations: Notes: In consultation with [facility] ED physician, Stewart Cuenca MD, and on-call psychiatrist, Carlos Ramirez MD, both concurred that Pt does not appear to meet 27-65 criteria requiring psychiatric hospitalization as Pt does not appear to be an imminent risk of harm to self/others/gravely disabled due to a mental illness condition. Dr. Ramirez provided telephone order read back vacating M1 hold at 0800 hrs. Was patient given the Answers: Not applicable Inpatient Behavioral Health Prohibited Belongings List while in the ED? Psychiatrist vacating M1 Carlos Ramirez MD Hold: Date and time M1 hold 05/16/2018 08:00 AM vacated (time format is hh:mm): Type of Hold: Answers: M1/72-hour Hold Hold initiated by: Answers: ED Physician Date Signed: 05/16/2018 08:45 AM Electronically Signed By:Tony Sin
== END 2018-05-16 08:10 | disposition home or self-care (01) ==
DX: F31.9 Bipolar disorder, unspecified (principal)
CPT/HCPCS: 80305; G0480

== ENCOUNTER 2019-04-10 19:45 | Emergency (ER) | payer MEDICAID, BC | END 2019-04-10 20:22 | disposition home or self-care (01) ==